=== PATIENT | female | born 2000 | race African-American/Black ===

== ENCOUNTER 2018-04-27 18:49 | Emergency (ER) | payer OTHER ==
--- NOTE | 2018-04-27 19:17 | UC ---
Abdominal Pain Female HPI - HPI Summary HPI Summary: Patient presents to urgent care reporting nausea over the last 4-5 days. Patient states she's been belching a little bit with that taste. Patient states she did vomit once. Patient denies abdominal pain. No diarrhea. No fever/chills/rash. No cough or shortness of breath. Patient denies headache or vision changes. 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 Patient states her last period was the beginning of February and she wonders if she might be . Patient hasn' t taken a test. Patient denies dysuria or hematuria. Patient states she knows she has been drinking of water's been drinking a lot of Pepsi. Patient states this could be bravo. Patient's medications reviewed this visit. - History of Current Complaint Chief Complaint: UCGI Stated Complaint: NAUSEA Time Seen by Provider: 04/27/18 19:14 Hx Obtained From: Patient Hx Last Menstrual Period: 03/14/18 Timing: Constant Severity Initially: Moderate Severity Currently: Moderate Pain Intensity: 1 Pain Scale Used: 0-10 Numeric Location: Epigastric - minimal Radiates: No Allergies/Adverse Reactions: Allergies Allergy/AdvReac Type Severity Reaction Status Date / Time No Known Allergies Allergy Verified 04/27/18 18:59 PMH/Surg Hx/FS Hx/Imm Hx Previously Healthy: Yes - Surgical History Surgical History: None - Family History Known Family History: Positive: Other - noncontributory - Social History Occupation: Employed Part-time, Student Alcohol Use: Occasionally Substance Use Type: Marijuana Smoking Status (MU): Never Smoked Tobacco Review of Systems Constitutional: Negative, Fatigue Gastrointestinal: Abdominal Pain - epigastric, mild, Vomiting, Nausea All Other Systems Reviewed And Are Negative: Yes Physical Exam - Summary Physical Exam Summary: Vital Signs Reviewed: Yes A+Ox3, no distress Eyes: Conjunctiva Clear, SAMANTHA. EOM intact and full ENT: Hearing grossly normal TM x 2 clear, mmoist, lips dry, uvula midline, no exudate, no erythema Neck: Positive: Supple Respiratory: Positive: No respiratory distress, No accessory muscle use + CTA throughout no w/r Cardiovascular: RRR nl s1, s2 no m/r CBT <2 sec abd soft + BS nd very mild episgastric pain with direct palp, no guarding, no distension No CVA b/l Musculoskeletal Exam: GARCIA x 4 without difficulty Strength Intact, ROM Intact Neurological: Positive: Alert, + sensation throughout Psychological: Positive: Normal Response To Family Skin: Positive: no rash, no ecchymosis Triage Information Reviewed: Yes Vital Signs: Initial Vital Signs Temp 99.2 F 04/27/18 18:54 Pulse 78 04/27/18 18:54 Resp 18 04/27/18 18:54 BP 113/70 04/27/18 18:54 Pulse Ox 100 04/27/18 18:54 Re-Evaluation - Re-Evaluation First Eval Re-Evaluation Time: 19:55 Change: Improved Comment: Pt states nausea resolved following zofran. REviewed urine and results with pt. Pt states she has a GF can talk to. [facility] Pt has multivitamin will take. pt cmfortable with plan. work and school note given Abd Pain Female Course/Dx - Course Course Of Treatment: Patient presents to urgent care reporting 4-5 days of persistent nausea. Patient states the waist and more frequent. Patient with one episode of emesis. Nonbilious non-bloody. Patient states she also has some fatigue. Patient without any other complaints. Patient without known sick contacts. Patient is 6 weeks status post her last period. Patient hasn't taken test. We'll check urine urinalysis and test. We will give Zofran and Maalox. Patient comfortable in agreement with plan. - Differential Dx/Diagnosis Provider Diagnoses: early undetermined . nausea Discharge - Sign-Out/Discharge Documenting (check all that apply): Patient Departure All imaging exams completed and their final reports reviewed: No Studies - Discharge Plan Condition: Stable Disposition: HOME Prescriptions: Ondansetron ODT TAB* [Zofran 4 MG Odt TAB*] 4 mg PO Q6H PRN #12 tab.odt PRN Reason: Nausea Patient Education Materials: Nausea and Vomiting in (ED), First Trimester (ED) Forms: *Gen. Provider Communication, *Work Release Referrals: [facility] [Outside] - As Soon As Possible (Call tomorrow for an appointment this week) Tyron Rivera MD [Primary Care Provider] - Additional Instructions: - stay well hydrated. Frequent sips of non-carbonated, non alcoholic beverages - Okay to take medication as prescribed for nausea - get plenty of restful sleep - contact your OB, the OB provider or [facility] to schedule a follow- up appointment - take daily vitamins - If you develop vaginal bleeding, lower abdominal cramping or pain, or other concerns it is recommended you go to the emergency department for further evaluation and treatment - Billing Disposition and Condition Condition: STABLE Disposition: Home
[2018-04-27] MEDS ORDERED: Ondansetron ODT TAB* 4 MG PO ONE (19:22)
[2018-04-27] MEDS ORDERED: Al Hydrox/Mg Hydrox/Simet LIQ* 30 ML UDC PO ONE (19:23)
[2018-04-27 20:01] VITALS: BP 113/70
--- NOTE | 2018-04-29 15:58 | UC ---
- Progress Note Progress Note: Patient preliminary urine culture E. coli >100,000 cfu/ml suggestive of a UTI. Recommend starting empiric treatment with cephalexin 500 mg BID x 5 days pending sensitivity results. May need to adjust antibiotics once these results are available. Prescription sent to preferred pharmacy. Re-Evaluation - Re-Evaluation First Eval Re-Evaluation Time: 19:55 Change: Improved Comment: Pt states nausea resolved following zofran. REviewed urine and results with pt. Pt states she has a GF can talk to. [facility] Pt has multivitamin will take. pt cmfortable with plan. work and school note given Discharge - Sign-Out/Discharge Documenting (check all that apply): Post-Discharge Follow Up All imaging exams completed and their final reports reviewed: No Studies - Discharge Plan Condition: Stable Disposition: HOME Prescriptions: Ondansetron ODT TAB* [Zofran 4 MG Odt TAB*] 4 mg PO Q6H PRN #12 tab.odt PRN Reason: Nausea Patient Education Materials: Nausea and Vomiting in (ED), First Trimester (ED) Forms: *Gen. Provider Communication, *Work Release Referrals: [facility] [Outside] - As Soon As Possible (Call tomorrow for an appointment this week) Tyron Rivera MD [Primary Care Provider] - Additional Instructions: - stay well hydrated. Frequent sips of non-carbonated, non alcoholic beverages - Okay to take medication as prescribed for nausea - get plenty of restful sleep - contact your OB, the OB provider or [facility] to schedule a follow- up appointment - take daily vitamins - If you develop vaginal bleeding, lower abdominal cramping or pain, or other concerns it is recommended you go to the emergency department for further evaluation and treatment - Billing Disposition and Condition Condition: STABLE Disposition: Home
== END 2018-04-27 20:01 | disposition home or self-care (01) ==
LOC: UCEAST 18:49
DX: O99.89 Other specified diseases and conditions complicating pregnancy, childbirth and the puerperium (principal); R11.0 Nausea; R10.13 Epigastric pain; Z3A.01 Less than 8 weeks gestation of pregnancy
CPT/HCPCS: 81003; 84702; 87077; 87086; 87186; 99212; A9270-GY; G0463